=== PATIENT | female | born 1965 | race Asian ===

== ENCOUNTER 2018-01-18 17:29 | Emergency (ER) | payer OTHER ==
[~2018-01-18] VITALS: Ht 165.1 cm; Wt 72.6 kg
[~2018-01-18 17:29] MED LIST: AMLO5TAB PO; CALCIUM + D600 MG PO; DIVA250T2 PO; DIVA500T PO; DIVALPROEX500 MG PO; DOCU100C10 PO; DOXE25CA18 PO; ESCI10TA PO; FINGERSTIX; HEMOCYTE324 MG PO; HUMALOG KWI100 MG/ML SC; LIPITOR20 MG PO; LORA0.5T17 PO; LORA10TA3 PO; LORA2INJ21 INJ; METAMUCIL0.52 GM PO; MULTTAB52 PO; NITR100C56 PO; OXYB5TAB56 PO; OXYB5TAB64 PO; PANT40TA PO; POTA10LI PO; POTASSIUM CL PO; QUET100T2 PO; SEROQUEL100 MG PO; SEROQUEL200 MG PO; SEROQUEL50 MG PO; TRAVATAN Z0.004 % OPTH; ZIPR20CA PO
[2018-01-18 17:39] VITALS: BP 141/73; TEMP 97.9
[2018-01-18 17:51] LABS: PLATELET COUNT 234 K/uL (152-353)
[2018-01-18 18:04] LABS: POTASSIUM 3.3 mmol/L (3.6-5.2)
[2018-01-18] MEDS ORDERED: AMLODIPINE BESYLATE PO (20:52)
[2018-01-18] MEDS ORDERED: PANTOPRAZOLE 40MG TA PO (21:00)
[2018-01-18] MEDS ORDERED: [UNRECOGNIZED DRUG - CODE] PO (21:07)
[2018-01-18] MEDS ORDERED: MULT VITAMIN (21:13)
[2018-01-18] MEDS ORDERED: LEXAPRO10 MG PO (21:16)
[2018-01-18] MEDS ORDERED: OXYB5TAB56 PO (21:21)
[2018-01-18] MEDS ORDERED: LIPITOR20 MG PO (21:24)
[2018-01-18] MEDS ORDERED: PSYL0.52C PO (21:27)
[2018-01-18] MEDS ORDERED: TRAVATAN Z0.004 % OPTH (21:30)
[2018-01-18] MEDS ORDERED: DIVA250T2 PO ×2 (21:38→21:40)
[2018-01-18] MEDS ORDERED: SEROQUEL100 MG OR (21:41)
[2018-01-18] MEDS ORDERED: LORA2INJ21 INJ (21:47)
[2018-01-18] MEDS ORDERED: LORA0.5T17 PO (21:52)
[2018-01-18] MEDS ORDERED: DOXE25CA18 PO (21:54)
[2018-01-18] MEDS ORDERED: LEXAPRO20 MG PO (21:57)
[2018-01-18] MEDS ORDERED: HUMULIN R1 ML SC (22:30)
[2018-01-18] MEDS ORDERED: TYLENOL325 MG OR ×2 (22:33→22:38)
[2018-01-18] MEDS ORDERED: LANTISEPTI2 EX (22:36)
[2018-01-18] MEDS ORDERED: MAGNSUS68 PO (22:39)
[2018-01-18] MEDS ORDERED: MYLANT3 PO (22:41)
[2018-01-25] MEDS ORDERED: QUET300T PO (10:45)
[2018-01-25] MEDS ORDERED: CEFD300C2 PO (10:45)
[2018-01-25] MEDS ORDERED: LORA2INJ21 INJ (10:45)
[2018-01-25] MEDS ORDERED: HALO5TAB10 PO (10:45)
[2018-01-25] MEDS ORDERED: PANTOPRAZOLE 40MG TA PO (10:45)
[2018-01-25] MEDS ORDERED: HALO5INJ3 IM (10:45)
[2018-01-25] MEDS ORDERED: QUET25TA2 PO (10:45)
== END 2018-01-18 19:07 | disposition other institution (70) ==
LOC: ED 17:29
DX: Z04.6 Encounter for general psychiatric examination, requested by authority (principal); E11.9 Type 2 diabetes mellitus without complications; E78.00 Pure hypercholesterolemia, unspecified; I10 Essential (primary) hypertension; G40.802 Other epilepsy, not intractable, without status epilepticus; F25.8 Other schizoaffective disorders
CPT/HCPCS: 36415; 80053; 80320; 83735; 84100; 85027; 93005; 99285